=== PATIENT | female | born 1980 | race Caucasian/White ===

== ENCOUNTER 2021-07-19 11:04 | Emergency (ER) | payer OTHER ==
[~2021-07-19] VITALS: Ht 154.9 cm; Wt 48.1 kg
== END 2021-07-19 16:14 | disposition home or self-care (01) ==
LOC: ER 11:04
DX: S01.81XA Laceration without foreign body of other part of head, initial encounter (principal); W18.30XA Fall on same level, unspecified, initial encounter; Y93.89 Activity, other specified; Y92.89 Other specified places as the place of occurrence of the external cause; Y99.9 Unspecified external cause status